=== PATIENT | female | born 1990 | race Asian ===

== ENCOUNTER 2021-03-31 14:22 | Inpatient (IN) ==
[~2021-03-31 14:22] MED LIST: Famotidine 20 MG/2 ML VIAL IVP PRN; Lidocaine 1% 20 ML MDV INFILT PRN; Metoclopramide 10 MG/2 ML VIAL IVP PRN; Naloxone 0.4 MG/ML INJ IVP PRN
[2021-03-31] MEDS ORDERED: Ringers Solution, Lactated 1,000 ML IVC SCH (14:30)
[2021-03-31 14:53] LABS: Hematocrit 38.6 % (35.3-44.9); Hemoglobin 13.1 g/dL (11.5-15.4); Red Blood Count 4.33 M/mcL (3.82-4.97); White Blood Count 9.4 K/mcL (4.3-11.1)
[2021-03-31 14:54] LABS: Basophils % 0.2 %; Eosinophils % 0.1 %; Immature Granulocytes % 0.3 % (0-4); Lymphocytes # 1.2 K/mcL (0.6-4.6); Lymphocytes % 12.4 %; Mean Corpuscular HGB Conc 33.9 g/dL (31.6-35.5); Mean Corpuscular Hemoglobin 30.3 pg (28.0-33.3); Mean Corpuscular Volume 89.1 fL (83.0-100.0); Mean Platelet Volume 12.3 fL (9.4-12.4); Monocytes # 0.6 K/mcL (0.0-1.3); Monocytes % 6.5 %; Neutrophils # 7.6 K/mcL (1.6-8.9); Platelet Count 115 K/mcL (140-400); Red Cell Distribution Width 13.7 % (11.5-14.5); Segmented Neutrophils % 80.5 %
[2021-03-31 14:56] LABS: Amphetamine Screen,Urine Negative ng/mL (Cutoff=1000); Barbiturate Screen,Urine Negative ng/mL (Cutoff=200); Benzodiazepines Screen,Urine Negative ng/mL (Cutoff=200); Cannabinoid Screen,Urine Negative ng/mL (Cutoff = 50); Cocaine Screen,Urine Negative ng/mL (Cutoff= 300); Opiate Screen,Urine Negative ng/mL (Cutoff=300); Phencyclidine Screen,Urine Negative ng/mL (Cutoff=25)
[2021-03-31] MEDS ORDERED: EPHEDrine 50 MG/ML VIAL IVP PRN (14:59)
[2021-03-31] MEDS ORDERED: *HR* FentaNYL (PF) 100 MCG/2 ML VIAL EP ONE (14:59)
[2021-03-31] MEDS ORDERED: Ropivacaine/PF 0.2% 20 ML VIAL EP ONE (14:59)
[2021-03-31] MEDS ORDERED: Epidural Premix (fent/bupiv) 110 ML EP SCH (15:00)
[2021-03-31] MEDS ORDERED: Ropivacaine/PF 0.2% 20 ML VIAL ONE (15:02)
[2021-03-31] MEDS ORDERED: *HR* FentaNYL (PF) 100 MCG/2 ML VIAL ONE (15:02)
[2021-03-31] MEDS ORDERED: Oxytocin 20 units/ LR 1000 mL 20 UNIT/1,000 ML BAG IVC SCH (16:45)
[2021-03-31] MEDS ORDERED: Ondansetron 4 MG/2 ML VIAL IVP PRN ×2 (18:30→22:06)
[2021-03-31] MEDS ORDERED: *HR* Propofol 200 MG/20 ML VIAL IVP ONE (21:02)
[2021-03-31] MEDS ORDERED: Ringers Solution, Lactated 1,000 ML ONE (21:08)
[2021-03-31] MEDS ORDERED: Clindamycin 900 MG/50 ML 900 MG/50 ML IV.SOLN IVPB ONE (21:13)
[2021-03-31] MEDS ORDERED: Azithromycin 500 MG VIAL ONE (21:13)
[2021-03-31] MEDS ORDERED: 0.9 % Sodium Chloride 250 ML ONE (21:14)
[2021-03-31] MEDS ORDERED: *HR* Morphine Sulfate/PF 10 MG/10 ML AMPUL ONE (21:17)
[2021-03-31] MEDS ORDERED: Ondansetron 4 MG/2 ML VIAL ONE (21:17)
[2021-03-31] MEDS ORDERED: Acetaminophen IV 1,000 MG/100 ML BAG IVPB ONE (21:40)
[2021-03-31] MEDS ORDERED: *HR* Rocuronium Bromide 50 MG/5 ML VIAL ONE (21:42)
[2021-03-31] MEDS ORDERED: Promethazine 6.25 MG in Water for inj. (sterile) 20 ML IVPB PRN (22:06)
[2021-03-31] MEDS ORDERED: *HR* HYDROmorphone PF 0.5 MG/0.5 ML SYRINGE IVP PRN (22:06)
[2021-04-01] MEDS ORDERED: Simethicone 80 MG TAB.CHEW PO PRN (01:15)
[2021-04-01] MEDS ORDERED: Ringers Solution, Lactated 1,000 ML IVC SCH (01:15)
[2021-04-01] MEDS ORDERED: Ondansetron 4 MG/2 ML VIAL IVP PRN (01:15)
[2021-04-01] MEDS ORDERED: Metoclopramide 10 MG/2 ML VIAL IVP PRN (01:15)
[2021-04-01] MEDS ORDERED: Oxytocin 20 units/ LR 1000 mL 20 UNIT/1,000 ML BAG IVC SCH (01:15)
[2021-04-01] MEDS ORDERED: Rho Immune Globulin 1,500 UNIT SYRINGE IM ONE (01:15)
[2021-04-01 05:29] LABS: Basophils % 0.2 %; Red Cell Distribution Width 13.9 % (11.5-14.5)
[2021-04-01 05:31] LABS: Hematocrit 33.7 % (35.3-44.9); Hemoglobin 11.2 g/dL (11.5-15.4); Immature Granulocytes % 0.5 % (0-4); Immature Platelets 15.6 % (1.1-6.1); Lymphocytes # 0.9 K/mcL (0.6-4.6); Lymphocytes % 5.1 %; Mean Corpuscular HGB Conc 33.2 g/dL (31.6-35.5); Mean Corpuscular Hemoglobin 29.9 pg (28.0-33.3); Mean Corpuscular Volume 89.9 fL (83.0-100.0); Mean Platelet Volume 12.8 fL (9.4-12.4); Monocytes # 0.7 K/mcL (0.0-1.3); Monocytes % 4.1 %; Red Blood Count 3.75 M/mcL (3.82-4.97); Segmented Neutrophils % 90.1 %; White Blood Count 17.7 K/mcL (4.3-11.1)
[2021-04-01 07:33] LABS: Platelet Count 99 K/mcL (140-400)
[2021-04-01 07:34] LABS: Anisocytosis 1+ (Not Present); Platelet Estimate Decreased (Normal)
[2021-04-01] MEDS ORDERED: cephALEXin 500 MG CAPSULE PO SCH (09:00)
[2021-04-01] MEDS: Prenatal Vit/FA 1 EACH TABLET PO SCH (09:03)
[2021-04-01] MEDS: Ibuprofen 600 MG TABLET PO SCH ×3 (09:04→22:36)
[2021-04-01] MEDS: metroNIDAZOLE 500 MG TABLET PO SCH ×3 (09:04→22:37)
[2021-04-01] MEDS: Acetaminophen 325 MG TABLET PO SCH ×3 (09:04→22:37)
[2021-04-01 14:36] LABS: SARS-CoV-2 by NAA Not Detected (Not Detected)
[2021-04-02] MEDS: Ibuprofen 600 MG TABLET PO SCH ×3 (03:37→18:35)
[2021-04-02] MEDS: *HR* OxyCODONE Immed Rel 5 MG TABLET PO PRN ×3 (03:37→21:57)
[2021-04-02] MEDS: Acetaminophen 325 MG TABLET PO SCH ×4 (03:38→21:57)
[2021-04-02] MEDS: metroNIDAZOLE 500 MG TABLET PO SCH ×3 (10:09→21:57)
[2021-04-02] MEDS: Prenatal Vit/FA 1 EACH TABLET PO SCH (10:10)
[2021-04-02 21:57] VITALS: TEMP 98.1; O2SAT 98
[2021-04-03] MEDS: *HR* OxyCODONE Immed Rel 5 MG TABLET PO PRN (05:51)
[2021-04-03 08:36] VITALS: BP 120/74; PULSE 86
[2021-04-03] MEDS: Ibuprofen 600 MG TABLET PO SCH ×2 (09:01→14:22)
[2021-04-03] MEDS: Prenatal Vit/FA 1 EACH TABLET PO SCH (09:01)
[2021-04-03] MEDS: metroNIDAZOLE 500 MG TABLET PO SCH ×2 (09:01→14:23)
[2021-04-03] MEDS: Acetaminophen 325 MG TABLET PO SCH (14:23)
== END 2021-04-03 14:44 | disposition home or self-care (01) | DRG 540 ==
LOC: 1NENULAB → 1NENUOBS 04-01 01:30
PROVIDERS: ADMIT Student in an Organized Health Care Education/Training Program; ATTEND Student in an Organized Health Care Education/Training Program